=== PATIENT | male | born 1980 | race Caucasian/White ===

== ENCOUNTER 2018-01-03 18:36 | Emergency (ER) | payer SELFPAY ==
[~2018-01-03] VITALS: Ht 157.5 cm; Wt 119.4 kg
[2018-01-03 18:43] VITALS: BP 163/97
--- NOTE | 2018-01-03 18:52 | NUR ---
PT AMBULATED TO BED 8.
--- NOTE | 2018-01-03 18:54 | NUR ---
37 Y/O M W/C/O "FEELING DIZZY SINCE FRIDAY." PT STATES NAUSEA. PT DENIES V/D; SKIN IS INTACT, PINK/WARM/DRY; AAOX4, PERRL, WITH EVEN AND STEADY GAIT; LUNGS CLEAR BL, BREATHING UNLABORED; HR EVEN AND REGULAR, BL PERIPHERAL PULSES PRESENT; BS ACTIVE X4, NO TENDERNESS TO PALPATION, NO HEPATOSPLENOMEGALLY PALPATED, RESONANT TO PERCUSSION; PT DENIES ANY FEVER, CP, SOB, OR COUGH AT THIS TIME; PT STATES 0/10 PAIN AT THIS TIME; VSS; PATIENT POSITIONED FOR COMFORT; HOB ELEVATED; BEDRAILS UP X2; BED DOWN.
--- NOTE | 2018-01-03 19:13 | NUR ---
Transfer of care at this time. Report given to FARRUKH Pederson.
--- NOTE | 2018-01-03 19:16 | NUR ---
PT AWAKE AAOX4 SITTING UP IN BED, DENIES PAIN @ THIS TIME. PT IS COMPLAINING OF INTERMITTENT DIZZINESS, PT STATES, "THE ROOM FEELS LIKE IT IS SPINNING." NO OTHER S/S OF ACUTE DISTRESS NOTED. WILL CONTINUE TO OBSERVE.
--- NOTE | 2018-01-03 20:07 | NUR ---
Dr. Wilson evaluating patient at bedside.
[2018-01-03] MEDS ORDERED: MECLIZINE 25 MG TAB PO ONE (20:20)
[2018-01-03 20:55] LABS: BASOPHILS % (AUTO) 0.2 % (0.0-2.0); EOSINOPHILS # (AUTO) 0.2 K/uL (0-0.4); EOSINOPHILS % (AUTO) 1.9 % (0.0-4.0); HEMATOCRIT 47.1 % (36-52); HEMOGLOBIN 15.4 g/dL (12.0-18.0); LYMPHOCYTES # (AUTO) 2.5 K/uL (2.0-11.5); MEAN CORPUSCULAR HEMOGLOBIN 27 pg (27-31); MEAN CORPUSCULAR HGB CONC 33 g/dL (33-37); MEAN CORPUSCULAR VOLUME 83.5 fL (80-94); MONOCYTES # (AUTO) 0.5 K/uL (0.8-1.0); MONOCYTES % (AUTO) 6.7 % (1.7-9.3); NEUTROPHILS % (AUTO) 61.2 % (42.2-75.2); PLATELET COUNT (AUTO) 237 K/uL (140-450); RED BLOOD CELL COUNT(AUTO) 5.65 MIL/uL (4.20-6.10); RED CELL DISTRIBUTION WIDTH 13.7 % (11.6-13.7); WHITE BLOOD COUNT (AUTO) 8.2 K/uL (4.8-10.8)
[2018-01-03 21:10] LABS: ANION GAP 10.9 (8-16); CARBON DIOXIDE 30.6 mmol/L (21-32); CREATININE 0.8 mg/dL (0.7-1.3); POTASSIUM 3.5 mmol/L (3.5-5.1)
[2018-01-03 21:23] LABS: ALBUMIN 3.8 g/dL (3.4-5.0); THYROID STIMULATING HORMONE 1.13 uIU/mL (0.34-3.74); TOTAL BILIRUBIN 0.2 mg/dL (0.0-1.0)
[2018-01-03 23:03] VITALS: BP 151/92
--- NOTE | 2018-01-03 23:03 | NUR ---
Patient discharged with v/s stable. Written and verbal after care instructions given and explained. Patient verbalized understanding. Ambulatory with steady gait. All questions addressed prior to discharge. Advised to follow up with PMD AND TO RETURN IF SYMPTOMS WORSEN.
== END 2018-01-03 23:03 | disposition home or self-care (01) ==
LOC: MED 18:36
DX: H81.10 Benign paroxysmal vertigo, unspecified ear (principal)
CPT/HCPCS: 36415; 80053; 84443; 85025; 99284; J8597